=== PATIENT | male | born 1980 | race Caucasian/White ===

== ENCOUNTER 2019-03-10 02:02 | Emergency (ER) | payer BC ==
[~2019-03-10] VITALS: Ht 182.9 cm; Wt 113.4 kg
[2019-03-10 02:05] VITALS: BP 134/92
--- NOTE | 2019-03-10 02:08 | NUR ---
Pt taken to bed 4. Report given to Cooper BENDER.
--- NOTE | 2019-03-10 02:24 | NUR ---
PT TO ED WITH C/O SOB SUDDEN ONSET YESTERDAY AT 2200. PT DENIES ANY CP AT THIS TIME. PER PT "I WAS TRYING TO GO TO SLEEP AND THEN I FELT SHORT OF BREATH" PT IS ABLE TO SPEAK CLEARLY WITHOUT DIFFICULTY. NO OBVIOUS DISTRESS NOTED. PT PLACED INTO BED, PENDING MD WINTERS.
[2019-03-10] MEDS ORDERED: DICYCLOMINE HCL LIQUID 20 MG, ALUMINUM HYD/MAG/SIMETHICONE 30 ML, LIDOCAINE VISCOUS 2% ... PO ONE ×3 (02:55)
[2019-03-10 03:29] VITALS: BP 128/88
--- NOTE | 2019-03-10 03:29 | NUR ---
Patient discharged with v/s stable. Written and verbal after care instructions given and explained. Patient verbalized understanding. Ambulatory with steady gait. All questions addressed prior to discharge. Advised to follow up with PMD.
== END 2019-03-10 03:29 | disposition home or self-care (01) ==
LOC: MED 02:02
DX: R06.02 Shortness of breath (principal); R13.10 Dysphagia, unspecified; R07.0 Pain in throat
CPT/HCPCS: 70360; 71046; 99283

== ENCOUNTER 2019-04-12 01:08 | Emergency (ER) | payer BC ==
[~2019-04-12] VITALS: Ht 182.9 cm; Wt 111.1 kg
[2019-04-12 01:14] VITALS: BP 138/87
--- NOTE | 2019-04-12 01:18 | NUR ---
FIRST CONTACT WITH PATIENT PATIENT BIB C/O NEW ONSET SWELLING OF TONGUE X 1 HOUR, +SOB. PATIENT STATES HE NOTICED TONGUE SWELLING WHEN HE WAS BRUSHING TEETH AT HOME. PATIENT DENIES ANY FOOD ALLERIGIES NO DAIRY ALLERGIES, NO USE OF DAHLIA INHIBITORS OR ANY MEDICATION ALLERGIES NOTED. PATIENT STATE HE HAD [place] AT 1900, WAS ON PHENERGAN WITH CODEINE RECENTLY FOR COUGH STARTED ON MONDAY. PATIENT TONGUE IS NOTED TO BE SWOLLEN THOUGH AIRWAY IS PATENT. PATIENT SAO2 98% RA, WITH NO WORK OF BREATHING NOTED. PATIENT BREATHING IS EVEN AND UNLABORED EQUAL RISE AND FALL OF CHEST. PATIENT DENIES ANY CP NO N/V/D. DR SALTER MADE AWARE, WILL CONTINUE TO MONITOR
--- NOTE | 2019-04-12 01:20 | NUR ---
DR SALTER EVALUATING PATIENT
[2019-04-12] MEDS ORDERED: diphenhydrAMINE 50 MG/ML VIAL IVP ONE (01:25)
[2019-04-12] MEDS ORDERED: predniSONE 20 MG TAB PO ONE (01:25)
--- NOTE | 2019-04-12 01:33 | NUR ---
Raven hernandez in [facility] - 04/12/19 at 0133 by DANIEL PATIENT LEFT FOR CHEST XRAY
--- NOTE | 2019-04-12 01:33 | NUR ---
PATIENT LEFT FOR XRAY
--- NOTE | 2019-04-12 01:42 | NUR ---
PATIENT RETURN FROM XRAY
--- NOTE | 2019-04-12 02:02 | NUR ---
DR SALTER AT BEDSIDE, SWELLING TO TONGUE IS NOTED TO DECREASE IS SWELLING, PATIENT STATES "I FEEL MUCH BETTER, I DONT FEEL LIKE I AM HAVING SOB AT THIS TIME". PATIENT UPDATED WITH PLAN OF CARE, WILL CONTINUE TO MONITOR
--- NOTE | 2019-04-12 02:07 | NUR ---
IV removed, catheter intact and site benign. Applied folded 4x4 gauze and tape to stop bleeding.
--- NOTE | 2019-04-12 02:08 | NUR ---
Patient discharged with v/s stable. Written and verbal after care instructions given and explained. Patient alert, oriented and verbalized understanding of instructions. Ambulatory with steady gait. All questions addressed prior to discharge. ID band removed. Patient advised to follow up with PMD. Rx of EPIPEN, PREDNISONE, AND BENADRY given. Patient educated on indication of medication including possible reaction and side effects. Opportunity to ask questions provided and answered. Patient accompanied by , who will be transporting patient home.
[2019-04-12 02:09] VITALS: BP 126/82
== END 2019-04-12 02:09 | disposition home or self-care (01) ==
LOC: MED 01:08
DX: T78.40XA Allergy, unspecified, initial encounter (principal); R06.02 Shortness of breath; X58.XXXA Exposure to other specified factors, initial encounter
CPT/HCPCS: 70360; 96372; 99283; J1200; J7512